=== PATIENT | male | born 1940 | race Asian ===

== ENCOUNTER 2019-06-05 06:45 | Day surgery (SDC) | payer MEDICARE, OTHER ==
[~2019-06-05] VITALS: Ht 157.5 cm; Wt 65.0 kg
[~2019-06-05 06:45] MED LIST: SODIUM CHLORIDE 0.9% 1,000 ML IV ONE
[2019-06-05] MEDS ORDERED: SODIUM CHLORIDE 0.9% 1,000 ML IV ONE (07:00)
[2019-06-05] MEDS ORDERED: BUPR100 PO (07:14)
[2019-06-05] MEDS ORDERED: ALBU8HFA IH (07:14)
[2019-06-05] MEDS ORDERED: DOXY25SU3 PO (07:14)
[2019-06-05] MEDS ORDERED: TAMS-1 PO (07:14)
[2019-06-05] MEDS ORDERED: LISI-661 PO (07:14)
[2019-06-05] MEDS ORDERED: MONT10TA21 PO (07:14)
[2019-06-05] MEDS ORDERED: ATOR10TA84 PO (07:14)
[2019-06-05] MEDS ORDERED: MECL-111 PO (07:14)
[2019-06-05] MEDS ORDERED: PRED10 PO (07:14)
[2019-06-05] MEDS ORDERED: SUCR1TAB PO (07:14)
[2019-06-05] MEDS ORDERED: ADV500 IH (07:14)
[2019-06-05] MEDS ORDERED: MIRT15 PO (07:14)
[2019-06-05] MEDS ORDERED: GABA-531 PO (07:14)
[2019-06-05] MEDS ORDERED: ASPI-1182 PO (07:14)
[2019-06-05] MEDS ORDERED: MIDAZOLAM HCL 2 MG/2 ML VIAL ONE (07:35)
[2019-06-05] MEDS ORDERED: FentaNYL CITRATE-PF 100 MCG/2 ML VIAL ONE (07:35)
[2019-06-05] MEDS ORDERED: MethylPREDNISolone SOD SUCC 125 MG/2 ML VIAL ONE (08:43)
[2019-06-05] MEDS ORDERED: MethylPREDNISolone SOD SUCC 125 MG/2 ML VIAL IVP ONE (08:45)
[2019-06-05] MEDS ORDERED: LIDOCAINE 2% 30 ML JELLY ONE (17:46)
[2019-06-05] MEDS ORDERED: ALBUTEROL SULFATE 2.5 MG/0.5 ML NEB SOLUTION NEB ONE (17:46)
[2019-06-05] MEDS ORDERED: BENZOCAINE 20% 50 MCG/SPRAY 57 GM ONE (17:46)
[2019-06-05] MEDS ORDERED: LIDOCAINE 4% 50 ML SOLUTION ONE (17:46)
[2019-06-05] MEDS ORDERED: OXYGEN THERAPY IH SCH (20:00)
== END 2019-06-05 09:55 | disposition home or self-care (01) ==
LOC: SURGERY 06:45
PROVIDERS: ATTEND Internal Medicine Critical Care Medicine
DX: J38.4 Edema of larynx (principal); B37.0 Candidal stomatitis; J45.909 Unspecified asthma, uncomplicated; J98.8 Other specified respiratory disorders; I10 Essential (primary) hypertension; Z87.891 Personal history of nicotine dependence; Z79.899 Other long term (current) drug therapy; Z98.890 Other specified postprocedural states
CPT/HCPCS: 31623; 31624; 71045; 87015; 87070; 87077; 87101; 87186; 87205; 87206; 87220; J2250; J2930; J3010; J7030

== ENCOUNTER 2020-01-01 06:46 | Day surgery (SDC) | payer OTHER ==
[~2020-01-01] VITALS: Ht 157.5 cm; Wt 65.1 kg
[~2020-01-01 06:46] MED LIST changes: +ADV500 IH; +ALBU8HFA IH; +ASPI-1111 PO; +ATOR10TA84 PO; +BUPR100 PO; +DOXY25SU3 PO; +GABA-1181 PO; +LISI-661 PO; +MECL-160 PO; +MIRT-89 PO; +MONT10TA21 PO; +PRED10 PO; -SODIUM CHLORIDE 0.9% 1,000 ML IV ONE; +SODIUM CHLORIDE 0.9% 1,000 ML ONE; +SUCR1TAB PO; +TAMS-1 PO
[2020-01-01] MEDS ORDERED: BENZOCAINE 20% 50 MCG/SPRAY 57 GM TP ONE (06:47)
[2020-01-01] MEDS ORDERED: LIDOCAINE 4% 50 ML SOLUTION TP ONE (06:47)
[2020-01-01] MEDS ORDERED: ALBUTEROL SULFATE 2.5 MG/0.5 ML NEB SOLUTION NEB ONE (06:47)
[2020-01-01] MEDS ORDERED: LIDOCAINE 2% 30 ML JELLY TP ONE (06:47)
[2020-01-01] MEDS ORDERED: SODIUM CHLORIDE 0.9% 1,000 ML IV ONE (07:00)
[2020-01-01] MEDS ORDERED: ACET-66 PO (07:08)
[2020-01-01] MEDS ORDERED: SENN8.6T90 PO (07:08)
[2020-01-01] MEDS ORDERED: RANI150T7 PO (07:08)
[2020-01-01] MEDS ORDERED: ALBU8HFA IH (07:08)
[2020-01-01] MEDS ORDERED: FLUT16H NASAL (07:08)
[2020-01-01] MEDS ORDERED: MIDAZOLAM HCL 2 MG/2 ML VIAL ONE (08:03)
[2020-01-01] MEDS ORDERED: FentaNYL CITRATE-PF 100 MCG/2 ML VIAL ONE (08:03)
[2020-01-01] MEDS ORDERED: MethylPREDNISolone SOD SUCC 125 MG/2 ML VIAL IVP ONE (08:30)
[2020-01-01] MEDS ORDERED: MethylPREDNISolone SOD SUCC 125 MG/2 ML VIAL ONE (08:44)
[2020-01-01] MEDS ORDERED: OXYGEN THERAPY IH SCH (20:00)
== END 2020-01-01 10:25 | disposition home or self-care (01) ==
LOC: SURGERY 06:46
PROVIDERS: ATTEND Internal Medicine Critical Care Medicine
DX: R05 Cough (principal); R91.1 Solitary pulmonary nodule; J34.89 Other specified disorders of nose and nasal sinuses; J98.8 Other specified respiratory disorders; B37.0 Candidal stomatitis; J39.8 Other specified diseases of upper respiratory tract; I10 Essential (primary) hypertension; E78.00 Pure hypercholesterolemia, unspecified; J45.909 Unspecified asthma, uncomplicated; Z87.891 Personal history of nicotine dependence; Z79.899 Other long term (current) drug therapy; R19.09 Other intra-abdominal and pelvic swelling, mass and lump
CPT/HCPCS: 31623; 31624; 71045; 71250; 87015; 87070; 87101; 87205; 87206; 87220; 88108; 88184; 88185; 88312; J2250; J2930; J3010; J7030

== ENCOUNTER 2021-05-19 06:59 | Day surgery (SDC) | payer OTHER ==
[~2021-05-19] VITALS: Ht 160 cm; Wt 65.9 kg
[~2021-05-19 06:59] MED LIST changes: +ACET-66 PO; -ASPI-1111 PO; -BUPR100 PO; +FLUT16H NASAL; -GABA-1181 PO; -LISI-661 PO; +LISI-893 PO; -MIRT-89 PO; +MONT-35 PO; -MONT10TA21 PO; +RANI150T7 PO; +SENN8.6T90 PO; -SODIUM CHLORIDE 0.9% 1,000 ML ONE; -SUCR1TAB PO
[2021-05-19] MEDS ORDERED: BENZOCAINE 20% 50 MCG/SPRAY 57 GM TP ONE (07:00)
[2021-05-19] MEDS ORDERED: LIDOCAINE 2% 30 ML JELLY TP ONE (07:00)
[2021-05-19] MEDS ORDERED: SODIUM CHLORIDE 0.9% 1,000 ML IV ONE (07:00)
[2021-05-19] MEDS ORDERED: ALBUTEROL SULFATE 2.5 MG/0.5 ML NEB SOLUTION NEB ONE (07:00)
[2021-05-19] MEDS ORDERED: SODIUM CHLORIDE 0.9% 1,000 ML ONE (07:49)
[2021-05-19 08:20] LABS: COVID AG,FIA SOURCE NASOPHARYNGEAL
[2021-05-19] MEDS ORDERED: FentaNYL CITRATE PF 100 MCG/2 ML VIAL ONE (08:20)
[2021-05-19] MEDS ORDERED: MIDAZOLAM HCL 5 MG/ML VIAL ONE (08:20)
[2021-05-19] MEDS ORDERED: BUPR100T6 PO (08:29)
[2021-05-19] MEDS ORDERED: OMEP20CA12 PO (08:29)
[2021-05-19] MEDS ORDERED: ATOR20TA65 PO (08:29)
[2021-05-19] MEDS ORDERED: TAMS-13 PO (08:29)
[2021-05-19] MEDS ORDERED: ALEN35TA41 PO (08:29)
[2021-05-19] MEDS ORDERED: FURO20TA4 PO (08:29)
[2021-05-19] MEDS ORDERED: LOSA25TA21 PO (08:29)
[2021-05-19] MEDS ORDERED: TIOT4MIS2 IH (08:29)
[2021-05-19] MEDS ORDERED: MONT10TA32 PO (08:29)
[2021-05-19] MEDS ORDERED: FLUT1DIS26 IH (08:29)
[2021-05-19] MEDS ORDERED: MethylPREDNISolone SOD SUCC 125 MG/2 ML VIAL ONE (09:25)
[2021-05-19] MEDS ORDERED: MethylPREDNISolone SOD SUCC 125 MG/2 ML VIAL IVP ONE (09:30)
== END 2021-05-19 11:10 | disposition home or self-care (01) ==
LOC: SURGERY 06:59
PROVIDERS: ATTEND Internal Medicine Critical Care Medicine
DX: J38.4 Edema of larynx (principal); B37.0 Candidal stomatitis; G47.30 Sleep apnea, unspecified; Z79.899 Other long term (current) drug therapy; I10 Essential (primary) hypertension; J45.909 Unspecified asthma, uncomplicated; E78.5 Hyperlipidemia, unspecified; Z98.890 Other specified postprocedural states
CPT/HCPCS: 31623; 31624; 71045; 87015; 87070; 87101; 87205; 87206; 87220; 87426; 88108; 88184; 88185; 88312; C9803; J2250; J2930; J3010; J7030; J7613

== ENCOUNTER 2022-06-29 06:45 | Day surgery (SDC) | payer OTHER ==
[~2022-06-29] VITALS: Ht 154.9 cm; Wt 63.6 kg
[~2022-06-29 06:45] MED LIST changes: -ACET-66 PO; -ADV500 IH; +ALEN35TA41 PO; -ATOR10TA84 PO; +ATOR20TA65 PO; +BUPR-112 PO; +FLUT1DIS26 IH; +FURO20TA4 PO; +LOSA-381 PO; -MECL-160 PO; -MONT-35 PO; +MONT-40 PO; +OMEP20CA12 PO; +PRED-729 PO; -PRED10 PO; -SENN8.6T90 PO; +SODIUM CHLORIDE 0.9% 1,000 ML IV ONE; +SODIUM CHLORIDE 0.9% 1,000 ML ONE; -TAMS-1 PO; +TAMS-13 PO; +TIOT4MIS2 IH
[2022-06-29] MEDS ORDERED: LIDOCAINE 4% 50 ML SOLUTION TP ONE (06:46)
[2022-06-29] MEDS ORDERED: ALBUTEROL SULFATE 2.5 MG/0.5 ML NEB SOLUTION NEB ONE (06:46)
[2022-06-29] MEDS ORDERED: LIDOCAINE 2% 11 ML JELLY TP ONE (06:46)
[2022-06-29] MEDS ORDERED: BENZOCAINE 20% 50 MCG/SPRAY 57 GM TP ONE (06:46)
[2022-06-29 06:54] LABS: COVID AG,FIA SOURCE NASAL SWAB
[2022-06-29] MEDS ORDERED: SENN8.6T20 PO (07:33)
[2022-06-29] MEDS ORDERED: MECL-134 PO (07:34)
[2022-06-29] MEDS ORDERED: CELE200 PO (07:36)
[2022-06-29] MEDS ORDERED: FentaNYL CITRATE PF 100 MCG/2 ML VIAL ONE (07:42)
[2022-06-29] MEDS ORDERED: MIDAZOLAM HCL 5 MG/ML VIAL ONE (07:42)
[2022-06-29] MEDS ORDERED: MethylPREDNISolone SOD SUCC 125 MG/2 ML VIAL IVP ONE (09:15)
[2022-06-29] MEDS ORDERED: MethylPREDNISolone SOD SUCC 125 MG/2 ML VIAL ONE (09:23)
[2022-06-29] MEDS ORDERED: OXYGEN THERAPY IH SCH (20:00)
== END 2022-06-29 11:05 | disposition home or self-care (01) ==
LOC: SURGERY 06:45
PROVIDERS: ATTEND Internal Medicine Critical Care Medicine
DX: J38.4 Edema of larynx (principal); B37.0 Candidal stomatitis; J45.909 Unspecified asthma, uncomplicated; Z98.890 Other specified postprocedural states; Z98.49 Cataract extraction status, unspecified eye; Z79.899 Other long term (current) drug therapy
CPT/HCPCS: 31623; 88305; 88112; 87206; 87101; 87220; 87070; 88312; 87186; 31624; 71045; 87015; 87426; J3010; J2930; J2250; Q9967; J7030; C9803; J7613; Z7610

== ENCOUNTER 2023-05-03 06:28 | Day surgery (SDC) | payer OTHER ==
[~2023-05-03] VITALS: Ht 157.5 cm; Wt 63.6 kg
[~2023-05-03 06:28] MED LIST changes: -ALBU8HFA IH; +CELE200 PO; -FLUT16H NASAL; +FLUT16SP NASAL; -LISI-893 PO; +MECL-134 PO; -RANI150T7 PO; +SENN8.6T20 PO; -SODIUM CHLORIDE 0.9% 1,000 ML IV ONE; -SODIUM CHLORIDE 0.9% 1,000 ML ONE
[2023-05-03] MEDS ORDERED: ALBUTEROL SULFATE 2.5 MG/0.5 ML NEB SOLUTION NEB ONE (06:29)
[2023-05-03] MEDS ORDERED: LIDOCAINE 2% 11 ML JELLY TP ONE (06:29)
[2023-05-03] MEDS ORDERED: LIDOCAINE 4% 50 ML SOLUTION TP ONE (06:29)
[2023-05-03] MEDS ORDERED: BENZOCAINE 20% 50 MCG/SPRAY 57 GM TP ONE (06:29)
[2023-05-03] MEDS ORDERED: SODIUM CHLORIDE 0.9% 1,000 ML ONE (07:15)
[2023-05-03] MEDS ORDERED: MIDAZOLAM HCL 2 MG/2 ML VIAL ONE (08:12)
[2023-05-03] MEDS ORDERED: FentaNYL CITRATE PF 100 MCG/2 ML VIAL ONE (08:12)
[2023-05-03] MEDS ORDERED: SODIUM CHLORIDE 0.9% 1,000 ML IV ONE (09:00)
[2023-05-03 09:10] VITALS: PULSE 75; RESP 14; O2SAT 99
[2023-05-03] MEDS ORDERED: MethylPREDNISolone SOD SUCC 125 MG/2 ML VIAL IVP ONE (09:15)
== END 2023-05-03 11:20 | disposition home or self-care (01) ==
LOC: SURGERY 06:28
PROVIDERS: ATTEND Internal Medicine Critical Care Medicine
DX: J38.4 Edema of larynx (principal); B37.0 Candidal stomatitis; I10 Essential (primary) hypertension; J45.909 Unspecified asthma, uncomplicated; Z79.899 Other long term (current) drug therapy; Z98.890 Other specified postprocedural states
CPT/HCPCS: 31623; 88112; 87206; 87101; 87220; 87070; 31624; 94640; 71045; 87015; J3010; J2250; J2930; Q9967; J7030; J7613; Z7610

== ENCOUNTER 2024-08-07 06:50 | Day surgery (SDC) | payer OTHER ==
[~2024-08-07] VITALS: Ht 160 cm; Wt 63.6 kg
[~2024-08-07 06:50] MED LIST changes: +SODIUM CHLORIDE 0.9% 1,000 ML ONE; -TAMS-13 PO; +TAMS0.4C94 PO
[2024-08-07] MEDS ORDERED: ALBUTEROL SULFATE 2.5 MG/0.5 ML NEB SOLUTION NEB ONE (06:51)
[2024-08-07] MEDS ORDERED: LIDOCAINE 4% 50 ML SOLUTION TP ONE (06:51)
[2024-08-07] MEDS ORDERED: LIDOCAINE 2% 11 ML JELLY TP ONE (06:51)
[2024-08-07] MEDS ORDERED: BENZOCAINE 20% 50 MCG/SPRAY 57 GM TP ONE (06:51)
[2024-08-07] MEDS ORDERED: FentaNYL CITRATE PF 100 MCG/2 ML VIAL ONE (08:48)
[2024-08-07] MEDS ORDERED: MIDAZOLAM HCL 2 MG/2 ML VIAL ONE (08:48)
[2024-08-07] MEDS: SODIUM CHLORIDE 0.9% 1,000 ML IV ONE (08:59)
[2024-08-07 09:13] VITALS: PULSE 58; RESP 15; O2SAT 96
[2024-08-07] MEDS ORDERED: MethylPREDNISolone SOD SUCC 125 MG/2 ML VIAL ONE (09:51)
[2024-08-07] MEDS: MethylPREDNISolone SOD SUCC 125 MG/2 ML VIAL IVP ONE (10:05)
== END 2024-08-07 14:00 | disposition home or self-care (01) ==
LOC: SURGERY 06:50
PROVIDERS: ATTEND Internal Medicine Critical Care Medicine
DX: R05.3 Chronic cough (principal); R06.2 Wheezing; R49.0 Dysphonia; R04.2 Hemoptysis; R91.8 Other nonspecific abnormal finding of lung field; J38.4 Edema of larynx; B37.0 Candidal stomatitis; I10 Essential (primary) hypertension; Z98.818 Other dental procedure status; Z98.890 Other specified postprocedural states
CPT/HCPCS: 31623; 87206; 87101; 87220; 87070; 31624; 94640; 71045; 87015; J3010; J2250; J2919; J7030; 88108; J7613; Z7610